=== PATIENT | male | born 1975 ===

== ENCOUNTER 2018-08-01 10:40 | Emergency (ER) | payer OTHER ==
[2018-08-01 10:49] VITALS: BP 131/85; PULSE 70; RESP 19; TEMP 98.1; O2SAT 99
[2018-08-01] MEDS ORDERED: Phenylephrine 0.5% Nasal Spray NAS STA (11:12)
--- NOTE | 2018-08-01 11:16 | ED PDOC ---
HPI: General Adult Time Seen by Provider: 08/01/18 11:15 Chief Complaint (Nursing): ENT Problem Chief Complaint (Provider): NOSEBLEED History Per: Patient (43 Y/O MALE HERE WITH EPISTAXIS NOTED AT WORK TODAY. PATIENT HAS H/O NOSEBLEED IN PAST BUT WORSENING TODAY.) Past Medical History Reviewed: Historical Data, Nursing Documentation, Vital Signs Vital Signs: Last Vital Signs Temp 98.1 F 08/01/18 10:48 Pulse 70 08/01/18 10:48 Resp 19 08/01/18 10:48 BP 131/85 08/01/18 10:48 Pulse Ox 99 08/01/18 10:48 - Family History Family History: States: No Known Family Hx - Allergies Allergies/Adverse Reactions: Allergies Allergy/AdvReac Type Severity Reaction Status Date / Time Penicillins Allergy SHORTNESS Verified 08/01/18 10:57 OF BREATH Review of Systems ROS Statement: Except As Marked, All Systems Reviewed And Found Negative Physical Exam - Reviewed Nursing Documentation Reviewed: Yes Vital Signs Reviewed: Yes - Physical Exam Appears: Positive for: Well, Non-toxic, No Acute Distress Head Exam: Positive for: ATRAUMATIC, NORMAL INSPECTION, NORMOCEPHALIC Skin: Positive for: Normal Color, Warm, DRY Eye Exam: Positive for: EOMI, Normal appearance, PERRL ENT: Negative for: Normal ENT Inspection (NO ACTIVE BLEEDING NOTED. ? SMALL ESCORIATION RIGHT NARE) Neck: Positive for: Normal, Painless ROM Cardiovascular/Chest: Positive for: Regular Rate, Rhythm Respiratory: Positive for: CNT, Normal Breath Sounds Gastrointestinal/Abdominal: Positive for: Normal Exam, Soft Back: Positive for: Normal Inspection Extremity: Positive for: Normal ROM Neurologic/Psych: Positive for: Alert, Oriented - ECG O2 Sat by Pulse Oximetry: 99 - Progress ED Course And Treament: NEOSYNEPHRINE SOAKED GUAZE PLACE IN RIGHT ANTERIOR NARE AND RE-EVALUATED IN 20 MINUTES. NO ACTIVE BLEEDING NOTED IN ED. Disposition - Clinical Impression Clinical Impression: Epistaxis - Patient ED Disposition Is Patient to be Admitted: No - Disposition Referrals: FAMILY PROVIDER,NO [Primary Care Provider] - Neil Smith MD [Staff Provider] - [facility] [Outside] Disposition: Routine/Home Disposition Time: 12:09 Condition: FAIR Instructions: Nosebleeds (DC)
[2018-08-01] MEDS ORDERED: Phenylephrine 0.5% Nasal Spray NAS ONE (11:17)
== END 2018-08-01 12:31 | disposition home or self-care (01) ==
LOC: H.ER 10:40 → SUPCPDRO 10:40 → H.ER 12:31
DX: R04.0 Epistaxis (principal); Z88.0 Allergy status to penicillin

== ENCOUNTER 2018-08-05 12:20 | Emergency (ER) | payer OTHER ==
[2018-08-05 12:33] VITALS: RESP 18; TEMP 98
--- NOTE | 2018-08-05 14:35 | ED PDOC ---
HPI: Nose Bleed Time Seen by Provider: 08/05/18 13:44 Chief Complaint (Nursing): ENT Problem Chief Complaint (Provider): Nosebleed History Per: Patient Onset/Duration Of Symptoms: Hrs Current Symptoms Are (Timing): Better Location Of Bleeding: Both Nares Associated Symptoms: denies: Syncope, Lightheadedness, Bleeding From Gums Additional Complaint(s): 43yo male, otherwise well, comes to ER for evaluation due to nosebleed. Patient states he was in this ER a few days ago due to nosebleed and states he did not have any further episodes until today. He states the symptoms started today at work, and ambulance was called due to persistent bleeding despite adding pressure. Patient states he initially was dizzy, but denies any such episodes currently. Patient also denies any anticoagulant use. No additional complaints. PMD: None Past Medical History Reviewed: Historical Data, Nursing Documentation, Vital Signs Vital Signs: Last Vital Signs Temp 98.0 F 08/05/18 12:31 Pulse 78 08/05/18 12:31 Resp 18 08/05/18 12:31 BP 136/88 08/05/18 12:31 Pulse Ox 99 08/05/18 12:31 - Medical History PMH: No Chronic Diseases - Surgical History Surgical History: No Surg Hx - Family History Family History: States: No Known Family Hx - Allergies Allergies/Adverse Reactions: Allergies Allergy/AdvReac Type Severity Reaction Status Date / Time Penicillins Allergy SHORTNESS Verified 08/05/18 12:31 OF BREATH Review of Systems ENT: Positive for: Nose Discharge (nosebleed) Neurological: Positive for: Dizziness (now resolved) Physical Exam - Reviewed Nursing Documentation Reviewed: Yes Vital Signs Reviewed: Yes - Physical Exam Appears: Positive for: Non-toxic, No Acute Distress Head Exam: Positive for: ATRAUMATIC, NORMAL INSPECTION, NORMOCEPHALIC Skin: Positive for: Normal Color. Negative for: Pallor Eye Exam: Positive for: EOMI, PERRL ENT: Positive for: Other (bilateral nares with gauze, but once removed there is dry blood to bilateral nares. No active bleeding. No tenderness to frontal or maxillary sinus. No bleeding in ooropharynx.) Neck: Positive for: Normal, Supple Cardiovascular/Chest: Positive for: Regular Rate, Rhythm Respiratory: Positive for: Normal Breath Sounds Pulses-Radial (L): 2+ Pulses-Radial (R): 2+ Neurological/Psych: Positive for: Awake, Oriented (x 3) - ECG O2 Sat by Pulse Oximetry: 99 (RA) Pulse Ox Interpretation: Normal Medical Decision Making Medical Decision Makinyo with nosebleed Plan: -- Observe in ER without gauze for any other incidence of nosebleed Nasal precautions such as avoiding blowing nose, sneezing with mouth open discussed with patient. Advised to use humidifier and vaseline each night. 1500 Patient remains stable in ER with no persistent nosebleed. Patient is stable for discharge home. Scribe Attestation: Documented by Racquel Pichardo, acting as a scribe for TARA Mead. Provider Scribe Attestation: All medical record entries made by the Scribe were at my direction and personally dictated by me. I have reviewed the chart and agree that the record accurately reflects my personal performance of the history, physical exam, medical decision making, and the department course for this patient. I have also personally directed, reviewed, and agree with the discharge instructions and disposition. Disposition - Clinical Impression Clinical Impression: Nasal bleeding - Disposition Referrals: Yasmany Hernandez MD [Medical Doctor] - Disposition: Routine/Home Disposition Time: 15:00 Condition: STABLE Additional Instructions: Avoid blowing your nose or putting anything in your nose for the next few days. Sleep with a humidifier and use Vaseline to moisturize the inside of your nose. If you have another nose bleed, place direct constant pressure at the bridge of your nose for at least 15 - 20 minutes. Return to ER if these measures do not stop the bleed. Instructions: Nosebleeds (DC) Forms: [facility] (Sinhala), [facility] School/Work Excuse Print Language: [place]
[2018-08-05 15:12] VITALS: BP 125/82; PULSE 80
[2018-08-05 15:21] VITALS: O2SAT 99
== END 2018-08-05 15:10 | disposition home or self-care (01) ==
LOC: H.ER 12:20
DX: R04.0 Epistaxis (principal); Z88.0 Allergy status to penicillin